=== PATIENT | female | born 1930 | race Caucasian/White ===

== ENCOUNTER 2016-12-26 12:37 | Emergency (ER) | payer MEDICARE, BC ==
--- NOTE | 2016-12-26 13:41 | RAD ---
Indication: Fall onto face. Comparison: January 04, 2015 CT. Technique: Noncontrast CT vertex of skull through foramen magnum. Report: Mild prominence of the cerebral sulci and cerebellar fissures reflecting atrophy. Decreased density in the periventricular and subcortical white matter while non-specific is most likely due to chronic microangiopathy. Negative for brantley matter white matter obscuration, intra or extra-axial hemorrhage, or mass effect. Unremarkable orbital contents. Negative for calvarial or skull base fracture. Paranasal sinuses and mastoid air spaces. Negative for scalp hematoma. IMPRESSION: 1. No evidence for traumatic brain injury. 2. Mild involutional change and stigmata of chronic small vessel ischemic disease. No acute intracranial process evident.
--- NOTE | 2016-12-26 13:48 | RAD ---
INDICATION: Mechanical fall onto face. COMPARISON: January 04, 2015 CT. TECHNIQUE: Multidetector CT images foramen magnum to lung apices without contrast. Multiplanar reformation. REPORT: Straightening relative to normal cervical lordosis which may be positional. Negative for facet subluxation at any level. Negative for vertebral body or posterior element fracture. Negative for paravertebral hematoma. Diffuse advanced degenerative spondylosis and facet joint osteoarthritis without significant change compared with the 2015 exam. Advanced degenerative arthropathy at the articulation between the dens and the anterior arch of C1 with suggestion of potential ankylosis. At C2-C3 facet joint osteoarthritis results in mild LEFT foraminal stenosis. At C3-C4 dorsal disc osteophyte complex results in mild acquired central canal stenosis and uncinate process spurring and facet joint osteoarthritis results in moderate RIGHT and severe LEFT foraminal stenosis. At C4-C5 dorsal disc osteophyte complex results in mild impression on the ventral margin of the thecal sac and uncinate process spurring results in mild bilateral foraminal stenosis. At C5-C6 dorsal disc osteophyte complex results in moderate acquired central canal stenosis and uncinate process spurring and facet joint osteoarthritis results in moderately severe RIGHT and mild LEFT foraminal stenosis. At C6-C7 prominent dorsal disc osteophyte complex results in moderate acquired central canal stenosis. IMPRESSION: No evidence for traumatic injury of the cervical spine.
--- NOTE | 2016-12-26 13:53 | RAD ---
INDICATION: Fall onto face. COMPARISON: Head CT and cervical spine CT of the same date. TECHNIQUE: Multidetector CT base of the skull through mandible without contrast. Multiplanar reformation. REPORT: Motion artifact degrades image quality. Artifact from dental amalgam. Soft tissue swelling over the RIGHT malar eminence, preseptal region of the RIGHT eye, and RIGHT forehead. No loculated soft tissue hematoma evident. Unremarkable post septal orbital contents. The orbital and maxillary sinus margins, zygomatic arches, lamina papyracea, base of the maxilla, pterygoid plates, and nasal bones are intact. The mandible is intact. Advanced degenerative arthropathy at the temporomandibular joints. Negative for TMJ dislocation. IMPRESSION: 1. Negative for maxillofacial fracture. 2. Soft tissue swelling over the RIGHT malar eminence, preseptal region of the RIGHT eye, and RIGHT forehead. No loculated soft tissue hematoma evident.
--- NOTE | 2016-12-26 13:56 | RAD ---
Indication: LEFT hand pain post fall. Comparison: No relevant prior exams available on the [facility] [place] PACS for comparison. Technique: AP and lateral views LEFT hand. Report: Bone density appears decreased throughout. There is ulnar plus variance and dorsal tilt of the distal radioarticular surface without a visualized acute or subacute fracture likely reflecting sequela of a healed distal radius fracture. No acute fracture evident. Negative for dislocation. Polyarticular severe osteoarthritis with advanced osteophytosis and joint space narrowing at the first metacarpal phalangeal and diffusely at the interphalangeal joints. Associated mild volar subluxation at the first metacarpal phalangeal joint. Diffuse soft tissue swelling. IMPRESSION: 1. Negative for fracture or dislocation. 2. Probable sequela of a healed distal radius fracture. 3. Polyarticular advanced osteoarthritis.
[2016-12-26 15:21] LABS: Urine Bilirubin Negative (Negative); Urine Glucose Negative (Negative); Urine Nitrite Negative (Negative)
[2016-12-26 15:30] VITALS: BP 132/63
--- NOTE | 2016-12-28 17:13 | ED ---
Cuong Domínguez Auryana, scribed for Laz Sanon MD on 12/26/16 at 1450 . Adult Trauma - HPI Summary HPI Summary: 86 year old female BIBA s/p fall. Patient reports that she just returned from walking her dog and had tripped. She has forehead pain and frontal teeth pain but denies neck pain, chest pain, or any shoulder pain. She currently is a resident at the [facility]. PMHx is significant for eye lid surgery (12/21/16) - History of Current Complaint Chief Complaint: EDHeadInjury Stated Complaint: FALL, Time Seen by Provider: 12/26/16 13:17 Hx Obtained From: Patient Hx Last Menstrual Period: N/A ?: No Mechanism of Injury: Fall Loss of Consciousness: no loss of consciousness Force: Medium Onset/Duration: Traumatic - [employer], Still Present Onset of Pain: Immediate Onset Severity: Mild Current Severity: Mild Pain Intensity: 4 Pain Scale Used: 0-10 Numeric Location: Head Associated Signs & Symptoms: Positive: Other: - forehead pain, and frontal teeth pain; NO NECK PAIN OR SHOULDER PAIN. Negative: Chest Pain, Fever, Loss of Consciousness - Allergy/Home Medications Allergies/Adverse Reactions: Allergies Allergy/AdvReac Type Severity Reaction Status Date / Time Doxycycline Allergy Mild Rash Verified 03/18/15 08:48 Diazepam [From Valium] Allergy Hallucinati Verified 03/18/15 08:48 ons PMH/Surg Hx/FS Hx/Imm Hx Endocrine/Hematology History: Denies: Hx Diabetes, Hx Thyroid Disease Cardiovascular History: Denies: Hx Hypertension Respiratory History: Denies: Hx Asthma, Hx Chronic Obstructive Pulmonary Disease (COPD) GI History: Denies: Hx Ulcer Musculoskeletal History: Denies: Hx Osteoporosis Neurological History: Denies: Other Neuro Impairments/Disorders - Surgical History Surgery Procedure, Year, and Place: Bilateral knee replacements. Hysterectomy. Cataract surgeries; both eyes. T&A Infectious Disease History: No Infectious Disease History: Reports: Hx Shingles - Over 20- years ago Denies: Hx Clostridium Difficile, Hx Hepatitis, Hx Human Immunodeficiency Virus (HIV), Hx of Known/Suspected MRSA, Hx Tuberculosis, Hx Known/Suspected VRE , Hx Known/Suspected VRSA, History Other Infectious Disease, Traveled Outside the [place] in Last 30 Days - Family History Known Family History: Positive: Cardiac Disease, Other - DEPRESSION - Social History Occupation: Retired Lives: Assisted Living Alcohol Use: Occasionally Hx Substance Use: No Substance Use Type: Reports: None Hx Tobacco Use: Yes Smoking Status (MU): Former Smoker Review of Systems Constitutional: Negative Negative: Fever Eyes: Negative Positive: Dental Pain - frontal Cardiovascular: Negative Negative: Chest Pain Respiratory: Negative Gastrointestinal: Negative Genitourinary: Negative Positive: Other - pain at the forehead Skin: Negative Neurological: Negative Psychological: Normal All Other Systems Reviewed And Are Negative: Yes Physical Exam - Summary Physical Exam Summary: VITAL SIGNS: Reviewed. GENERAL: Patient is a well-developed and nourished elderly female who is lying comfortable in the stretcher. Patient is not in any acute respiratory distress. HEAD AND FACE: No signs of trauma. No ecchymosis, hematomas or skull depressions. No sinus tenderness. Swelling of the nasal bridge, EYES: PERRLA, EOMI x 2, No injected conjunctiva, no nystagmus. Surgery on the bilateral eye lids - healing well , no discharge. EARS: Hearing grossly intact. Ear canals and tympanic membranes are within normal limits. MOUTH: Oropharynx within normal limits. NECK: Supple, trachea is midline, no adenopathy, no JVD, no carotid bruit, no c- spine tenderness, neck with full ROM. CHEST: Symmetric, no tenderness at palpation LUNGS: Clear to auscultation bilaterally. No wheezing or crackles. CVS: Regular rate and rhythm, S1 and S2 present, no murmurs or gallops appreciated. ABDOMEN: Soft, non-tender. No signs of distention. No rebound no guarding, and no masses palpated. Bowel sounds are normal. EXTREMITIES: FROM in all major joints, no edema, no cyanosis or clubbing. NEURO: Alert and oriented x 3. No acute neurological deficits. Speech is normal and follows commands. SKIN: Dry and warm. Triage Information Reviewed: Yes Vital Signs On Initial Exam: Initial Vitals Temp Pulse Resp BP Pulse Ox 98.2 F 83 18 169/63 93 12/26/16 12:41 12/26/16 12:41 12/26/16 12:41 12/26/16 12:41 12/26/16 12:41 Vital Signs Reviewed: Yes - Tavares Coma Scale Coma Scale Total: 15 Diagnostics - Vital Signs Vital Signs Temp Pulse Resp BP Pulse Ox 12/26/16 12:41 98.2 F 83 18 169/63 93 - Laboratory Lab Statement: Any lab studies that have been ordered have been reviewed, and results considered in the medical decision making process. - Radiology LEFT HAND Xray Interpretation: Positive (See Comments) - IMPRESSION: 1. Negative for fracture or dislocation. 2. Probable sequela of a healed distal radius fracture. 3. Polyarticular advanced osteoarthritis. Radiology Interpretation Completed By: Radiologist - CT BRAIN CT Interpretation: Positive (See Comments) - IMPRESSION: 1. No evidence for traumatic brain injury. 2. Mild involutional change and stigmata of chronic small vessel ischemic disease. No acute intracranial process evident. CT Interpretation Completed By: Radiologist cervical spine CT Interpretation: No Acute Changes - IMPRESSION: No evidence for traumatic injury of the cervical spine. CT Interpretation Completed By: Radiologist MAXILLOFACIAL CT Interpretation: Positive (See Comments) - IMPRESSION: 1. Negative for maxillofacial fracture. 2. Soft tissue swelling over the RIGHT malar eminence, preseptal region of the RIGHT eye, and RIGHT forehead. No loculated soft tissue hematoma evident. CT Interpretation Completed By: Radiologist Adult Trauma Course/Dx - Course Assessment/Plan: 86 year old female BIBA s/p fall. Patient reports that she just returned from walking her dog and had tripped. She has forehead pain and frontal teeth pain but denies neck pain, chest pain, or any shoulder pain. She currently is a resident at the [facility]. PMHx is significant for eye lid surgery (12/21/16). UA (-) UTI. CT MAXILLOFACIAL IMPRESSION 1. Negative for maxillofacial fracture. 2. Soft tissue swelling over the RIGHT malar eminence, pre-septal region of the RIGHT eye, and RIGHT forehead. No loculated soft tissue hematoma evident. Left Hand XR - IMPRESSION: 1. Negative for fracture or dislocation. 2. Probable sequela of a healed distal radius fracture. 3. Polyarticular advanced osteoarthritis. CT BRAIN - IMPRESSION: 1. No evidence for traumatic brain injury. 2. Mild involutional change and stigmata of chronic small vessel ischemic disease. No acute intracranial process evident. Cervical spine CT - IMPRESSION: No evidence for traumatic injury of the cervical spine. Patient is able to ambulate and has no other pain. Abrasions to face cleaned up and bacitracin applied. Patient thinks she has recent tetanus shot and declined tetanus shot here in ED. At this point, since patient is ambulatory and has no other complaint. We will discharge with follow up with PCP. Patient was given instructions for precautions. Daughter will stay with her tonight for observation at home. Patient is hemodynamically stable and A&O x3. - Diagnoses Provider Diagnoses: Fall, Facial contusion Discharge - Discharge Plan Condition: Stable Disposition: HOME Patient Education Materials: Fall Prevention (ED), Facial Contusion (ED) Referrals: Pop Sarabia MD [Primary Care Provider] - 3 Days The documentation as recorded by the Cuong lopez Auryana accurately reflects the service I personally performed and the decisions made by , Laz Sanon MD.
== END 2016-12-26 15:31 | disposition home or self-care (01) ==
LOC: ED 12:37
DX: S00.93XA Contusion of unspecified part of head, initial encounter (principal); R51 Headache; W19.XXXA Unspecified fall, initial encounter; Y93.9 Activity, unspecified; Y92.9 Unspecified place or not applicable; K08.89 Other specified disorders of teeth and supporting structures; Z87.891 Personal history of nicotine dependence
CPT/HCPCS: 70450; 70486; 72125; 81003; 99282

== ENCOUNTER 2018-03-13 22:52 | Emergency (ER) | payer MEDICARE, BC ==
--- OUTSIDE RECORDS SUMMARY | 2018-03-13 23:07 | XMS REPORT ---
:1930 External Reference #:[id number] Author Organization [facility] Address [address] [place] [address] [place] [address] Phone [phone] Care Team Providers Name Role Phone Pop Sarabia M.D. Primary Care Physician Unavailable Payers Type Date Identification Numbers Payment Provider Subscriber Medicare Primary Policy Number: [id number] Medicare Ebonie Mckeon PayID: [id number] [address] [place] [address] Medigap Part B Policy Number: [id number] [facility] Ebonie Mckeon Group Number: [id number] [address] [address] PayID: [id number] [place] [address] Problems Date Description Provider Status Onset: 04/06/2012 Rheumatoid arthritis Pa Lynn M.D. 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 Active without spinal cord injury Onset: 06/18/2015 Obstructive sleep apnea syndrome Starla Junior MD Active Onset: 06/15/2017 Malaise and fatigue Thomas Dubose M.D. Active Onset: 06/15/2017 Enthesopathy of knee Thomas Dubose M.D. Active Family History Date Family Member(s) Problem(s) Comments General Alzheimer's Disease General Heart Disease Father at age 71 Father Heart Disease Father Multiple Sclerosis (MS) Father Emphysema Mother at 87 Mother Alzheimer's Disease Social History Type Date Description Comments Marital Status Lives With Alone Occupation Retired Occupation Nurse Cigarette Use Former Cigarette Smoker Cigarette Use Former Cigarette Smoker 2 Packs Daily 18 years Cigarette Use Quit - Age 33 ETOH Use Occasionally consumes alcohol Smoking Patient is a former smoker Recreational Drug Use Denies Drug Use Daily Caffeine Consumes on average 1 cup of hot tea 1-2 Green tea per day Daily Caffeine consumes 1oz of chocolate per day Exercise Type/Frequency Exercises regularly Walking every day Allergies, Adverse Reactions, Alerts Date Description Reaction Status Severity Comments 01/05/2017 Erythromycin active diarhhea 09/16/2010 NKDA inactive Medications Medication Date Status Form Strength Qnty SIG Indications Ordering Provider Calcium-Carb 01/19/ Active Tablets 600-125mg- po bid Unknown 600 + D 2016 Unit Fish Oil 01/19/ Active Capsules 2000Units 1 by mouth Unknown 2015 every day Vitamin D 09/15/ Active Tablets 2000Unit 1 by mouth Unknown 2016 every day Danay 128 / Active Solution 5% 2 drops bid Unknown 0000 Multi-Vitamin / Active Tablets 1 po qd Unknown 0000 Fluticasone / Active Suspension 50mcg/Act prn Sarabia, Propionate 0000 Zoila Lord Meclizine HCL / Active Tablets 12.5mg 1-2 tab two Unknown 0000 times a day prn Preservision / Active Capsules 1 tab by Unknown Areds 0000 mouth once a day Prednisolone / Active Suspension 1% Instill 1 Unknown Acetate 0000 Drop Into The Right Eye Daily Ipratropium 11/01/ Hx Solution 0.03% 30ml 1 spray J30.9 Starla [place] 2016 - intranasal Sandi, 02/27/ twice a day 2018 Eye Drops 01/20/ Hx 1 times a Starla 2015 - day as Sandi 02/27/ instructed 2018 (prednisone , 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 Pa 2011 Endo, 02/27/ M.D. 2017 Methotrexate 09/15/ Hx Tablets 2.5mg 15tab 2 tabs each Pa 2011 Endo, 04/06/ M.D. 2011 Folic Acid 09/15/ Hx Tablets 1mg 90tab 1 po qd Pa 2012 - s Shane, 04/06/ M.D. 2011 Nyamyc / Hx Powder [id number] Cornell, 0000 - /GM Pop, 02/27/ M.D. 2017 Eye Drops / Hx 2 times per Unknown 0000 - day, both 02/27/ eyes, for 2018 bubbles on cornea Immunizations CPT Code Status Date Vaccine Lot # [id number] Given 06/18/2015 Influenza Virus 3Yrs & Over Vital Signs Date Vital Result Comment 02/28/2018 Height 62 inches 5'2" Weight 165.00 lb Heart Rate 80 /min BP Systolic Sitting 118 mmHg BP Diastolic Sitting 60 mmHg Respiratory Rate 14 /min O2 % BldC Oximetry 96 % BMI (Body Mass Index) 30.2 kg/m2 12/19/2017 Height 62 inches 5'2" Weight 168.25 lb Heart Rate 70 /min BP Systolic Sitting 168 mmHg Lue reg cuff BP Diastolic Sitting 76 mmHg Lue reg cuff Respiratory Rate 16 /min O2 % BldC Oximetry 97 % On Ra BMI (Body Mass Index) 30.8 kg/m2 09/17/2017 Height 62 inches 5'2" Weight 170.00 lb Heart Rate 80 /min BP Systolic Sitting 134 mmHg Lue regular cuff BP Diastolic Sitting 74 mmHg Lue regular cuff Respiratory Rate 16 /min O2 % BldC Oximetry 97 % BMI (Body Mass Index) 31.1 kg/m2 08/10/2017 Height 62 inches 5'2" Weight 173.25 lb with shoes Heart Rate 74 /min BP Systolic Sitting 148 mmHg Lue reg cuff BP Diastolic Sitting 86 mmHg Lue reg cuff Respiratory Rate 16 /min O2 % BldC Oximetry 95 % On Ra BMI (Body Mass Index) 31.7 kg/m2 06/15/2017 Height 62 inches 5'2" Weight 173.00 lb BP Systolic 126 mmHg BP Diastolic 74 mmHg Respiratory Rate 20 /min Body Temperature 98.1 F Pain Level 0 BMI (Body Mass Index) 31.6 kg/m2 01/05/2017 Height 62 inches 5'2" Weight 176.00 lb Heart Rate 98 /min BP Systolic Sitting 132 mmHg BP Diastolic Sitting 80 mmHg Respiratory Rate 16 /min Pain Level 5 Fell hit face-right eye O2 % BldC Oximetry 99 % BMI (Body Mass Index) 32.2 kg/m2 11/01/2016 Heart Rate 72 /min BP Systolic Sitting 122 mmHg BP Diastolic Sitting 70 mmHg Respiratory Rate 16 /min O2 % BldC Oximetry 97 % 08/02/2016 Height 62 inches 5'2" Weight 176.00 lb Heart Rate 68 /min BP Systolic 124 mmHg BP Diastolic 72 mmHg Respiratory Rate 14 /min O2 % BldC Oximetry 98 % BMI (Body Mass Index) 32.2 kg/m2 04/07/2016 Height 62 inches 5'2" Weight 176.00 lb reported Heart Rate 75 /min BP Systolic 126 mmHg BP Diastolic 86 mmHg Respiratory Rate 14 /min O2 % BldC Oximetry 98 % BMI (Body Mass Index) 32.2 kg/m2 01/21/2016 Height 62 inches 5'2" Weight 170.00 lb per pt Heart Rate 76 /min BP Systolic Sitting 130 mmHg BP Diastolic Sitting 74 mmHg Respiratory Rate 18 /min O2 % BldC Oximetry 96 % BMI (Body Mass Index) 31.1 kg/m2 09/17/2015 Height 62 inches 5'2" Weight 175.00 lb Heart Rate 78 /min BP Systolic 134 mmHg BP Diastolic 78 mmHg Respiratory Rate 16 /min O2 % BldC Oximetry 98 % BMI (Body Mass Index) 32.0 kg/m2 06/18/2015 Height 62 inches 5'2" Weight 175.00 lb Heart Rate 82 /min BP Systolic Sitting 136 mmHg BP Diastolic Sitting 74 mmHg Respiratory Rate 18 /min O2 % BldC Oximetry 97 % BMI (Body Mass Index) 32.0 kg/m2 03/27/2015 Height 61 inches 5'1" Weight 174.00 lb Heart Rate 78 /min BP Systolic Sitting 140 mmHg BP Diastolic Sitting 80 mmHg Pain Level 6 back BMI (Body Mass Index) 32.9 kg/m2 02/17/2015 Height 61 inches 5'1" Weight 177.00 lb Heart Rate 83 /min BP Systolic 128 mmHg BP Diastolic 70 mmHg Respiratory Rate 14 /min Body Temperature 98.6 F O2 % BldC Oximetry 94 % BMI (Body Mass Index) 33.4 kg/m2 Neck Circumference in inches 14 04/06/2012 Height 61 inches 5'1" Weight 178.00 lb Heart Rate 81 /min BP Systolic Sitting 126 mmHg BP Diastolic Sitting 64 mmHg BMI (Body Mass Index) 33.6 kg/m2 01/27/2012 Height 61 inches 5'1" Weight 180.00 lb Heart Rate 78 /min BP Systolic Sitting 118 mmHg BP Diastolic Sitting 70 mmHg BMI (Body Mass Index) 34.0 kg/m2 11/11/2011 Height 61 inches 5'1" Weight 183.00 lb Heart Rate 80 /min BP Systolic Sitting 122 mmHg BP Diastolic Sitting 64 mmHg BMI (Body Mass Index) 34.6 kg/m2 09/16/2011 Height 61 inches 5'1" Weight 182.00 lb Heart Rate 82 /min BP Systolic Sitting 123 mmHg BP Diastolic Sitting 66 mmHg BMI (Body Mass Index) 34.4 kg/m2 01/21/2011 Height 61 inches 5'1" Weight 180.00 lb Heart Rate 80 /min BP Systolic 120 mmHg BP Diastolic 78 mmHg BMI (Body Mass Index) 34.0 kg/m2 09/16/2010 Height 61 inches 5'1" Weight 183.00 lb Heart Rate 80 /min BP Systolic 122 mmHg BP Diastolic 80 mmHg BMI (Body Mass Index) 34.6 kg/m2 Results Test Date Test Result H/L Range Note CBC With Manual Diff 09/22/2012 White Blood Count 5.5 10^3/uL 4.8-10.8 Red Blood Count 4.60 10^6/uL 4.0-5.4 Hemoglobin 14.2 g/dL 12.0-16.0 Hematocrit 42 % 35-47 Mean Corpuscular Volume 91 fL 80-97 Mean Corpuscular Hemoglobin 31 pg 27-31 Mean Corpuscular HGB Conc 34 g/dL 31-36 Red Cell Distribution Width 14 % 10.5-15 Platelet Count 241 10^3/uL 150-450 Mean Platelet Volume 7 um3 Low 7.4-10.4 Abs Neutrophils 3.3 10^3/uL 1.5-7.7 Abs Lymphocytes 1.5 10^3/uL 1.0-4.8 Abs Monocytes 0.5 10^3/uL 0-0.8 Abs Eosinophils 0.2 10^3/uL 0-0.6 Abs Basophils 0 10^3/uL 0-0.2 Abs Nucleated RBC 0 10^3/uL Neutrophil % 53 % 38-83 Lymphocytes % 28 % 25-47 Monocytes % 13 % 0-13 Eosinophils % 4 % 0-6 Basophil % 1 % 0-2 Reactive Lymph % 1 % 0-6 RBC Morphology Normal Normal Laboratory test finding 09/22/2012 Erythrocyte Sed Rate 42 mm/Hr High 0- 40 C Reactive Protein 0.7 mg/dL High Less than 0.5 Rheumatoid Factor <15 IU/mL <15 1 Comp Metabolic Panel 09/22/2012 Sodium 138 mmol/L 133-145 Potassium 4.4 mmol/L 3.5-5.0 Chloride 106 mmol/L 101-111 Co2 Carbon Dioxide 29.0 mmol/L 22-32 Anion Gap 3.0 mmol/L 2-11 Glucose 96 mg/dL 70-100 Blood Urea Nitrogen 19 mg/dL 6-24 Creatinine 0.70 mg/dL 0.50-1.40 BUN/Creatinine Ratio 27.1 High 8-20 Calcium 9.3 mg/dL 8.1-9.9 Total Protein 6.0 g/dL Low 6.2-8.1 Albumin 3.3 g/dL 3.2-5.2 Globulin 2.7 g/dL 2-4 Albumin/Globulin Ratio 1.2 1-3 Total Bilirubin 0.6 mg/dL 0.4-1.5 Alkaline Phosphatase 68 U/L 30-110 Alt 20 U/L 14-54 Ast 23 U/L 12-42 Egfr Non- 79.7 >60 Egfr 102.5 >60 2 Laboratory test finding 09/22/2012 Cyclic Citrullinated Pept <15.6 U 3 IgG CBC With Manual Diff 07/31/2012 White Blood Count 7.4 10^3/uL 4.8-10.8 Red Blood Count 4.89 10^6/uL 4.0-5.4 Hemoglobin 14.2 g/dL 12.0-16.0 Hematocrit 44 % 35-47 Mean Corpuscular Volume 91 fL 80-97 Mean Corpuscular Hemoglobin 29 pg 27-31 Mean Corpuscular HGB Conc 32 g/dL 31-36 Red Cell Distribution Width 14 % 10.5-15 Platelet Count 262 10^3/uL 150-450 Mean Platelet Volume 8 um3 7.4-10.4 Abs Neutrophils 4.7 10^3/uL 1.5-7.7 Abs Lymphocytes 1.8 10^3/uL 1.0-4.8 Abs Monocytes 0.6 10^3/uL 0-0.8 Abs Eosinophils 0.3 10^3/uL 0-0.6 Abs Basophils 0.1 10^3/uL 0-0.2 Abs Nucleated RBC 0.01 10^3/uL Neutrophil % 56 % 38-83 Lymphocytes % 33 % 25-47 Monocytes % 6 % 0-13 Eosinophils % 5 % 0-6 RBC Morphology Normal Normal Laboratory test finding 07/31/2012 Erythrocyte Sed Rate 36 mm/Hr 0-40 C Reactive Protein 0.5 mg/dL Less than 0.5 Rheumatoid Factor <15 IU/mL <15 4 Comp Metabolic Panel 07/31/2012 Sodium 140 mmol/L 133-145 Potassium 4.7 mmol/L 3.5-5.0 Chloride 102 mmol/L 101-111 Co2 Carbon Dioxide 30.0 mmol/L 22-32 Anion Gap 8.0 mmol/L 2-11 Glucose 83 mg/dL 70-100 Blood Urea Nitrogen 26 mg/dL High 6-24 Creatinine 0.60 mg/dL 0.50-1.40 BUN/Creatinine Ratio 43.3 High 8-20 Calcium 9.6 mg/dL 8.1-9.9 Total Protein 7.1 g/dL 6.2-8.1 Albumin 3.8 g/dL 3.2-5.2 Globulin 3.3 g/dL 2-4 Albumin/Globulin Ratio 1.2 1-3 Total Bilirubin 0.6 mg/dL 0.4-1.5 Alkaline Phosphatase 72 U/L 30-110 Alt 24 U/L 14-54 Ast 27 U/L 12-42 Egfr Non- 95.2 >60 Egfr 122.5 >60 5 Laboratory test finding 03/23/2012 Erythrocyte Sed Rate 34 MM/HR 0-40 C Reactive Protein 0.5 mg/dL Less Than 0.5 CBC With Manual Diff 03/23/2012 White Blood Count 6.9 CUMM 4.8-10.8 Red Cell Count 4.65 CUMM 4.2-5.4 Hemoglobin 14.3 g/dL 12.0-16.0 Hematocrit 42 % 35-47 Mean Corpuscular Volume 91 um3 79-97 Mean Corpuscular Hemoglob 31 pg 27-31 Mean Corpuscular HGB Cone 34 g/dL 32-36 Redcell Distribution WDTH 14 % 10.5-15 Platelet Count 250 CUMM 150-450 Mean Platelet Volume 7.9 um3 7.4-10.4 Absolute Neutrophil Count 4.2 1.5-7.7 Polysegmented Neutrophil 54 % 38-83 Lymphocyte 38 % 25-47 Monocyte 5 % 0-13 Eosinophil 3 % 0-6 RBC Morphology NORMAL Basic Metabolic Panel 03/23/2012 Sodium 137 mmol/L 135-145 Potassium 4.9 mmol/L 3.5-5.0 Chloride 105 mmol/L 101-111 Co2 (Carbon Dioxide) 26.0 mmol/L 22-32 Anion Gap 6.0 mmol/L 2-11 6 Glucose 88 mg/dL 70-100 BUN 22 mg/dL 6-24 Creatinine 0.6 mg/dL 0.50-1.40 One Over Creatinine 1.66 BUN/Creatinine Ratio 36.7 High 8-20 Calcium 9.8 mg/dL 8.1-9.9 eGFR Non- 95.5 > 60 eGFR 122.8 > 60 7 Liver Function Panel 03/23/2012 Total Protein 6.3 GM/DL 6.2-8.1 Albumin 3.6 GM/DL 3.2-5.2 Globulin 2.7 GM/DL 2-4 Albumin/Globulin Ratio 1.3 1-3 Bilirubin Total 0.7 mg/dL 0.4-1.5 8 Bilirubin Direct 0.0 mg/dL Low 0.1-0.5 Indirect Bilirubin (SEE NOTE) mg/dL 0.3-1.0 9 Alkaline Phosphatase 67 U/L 30-110 Alt (SGPT) 18 U/L 14-54 Ast (Sgot) 25 U/L 12-42 CBC With Manual Diff 01/13/2012 White Blood Count 7.4 CUMM 4.8-10.8 Red Cell Count 4.83 CUMM 4.2-5.4 Hemoglobin 14.5 g/dL 12.0-16.0 Hematocrit 43 % 35-47 Mean Corpuscular Volume 90 um3 79-97 Mean Corpuscular Hemoglob 30 pg 27-31 Mean Corpuscular HGB Cone 34 g/dL 32-36 Redcell Distribution WDTH 15 % 10.5-15 Platelet Count 278 CUMM 150-450 Mean Platelet Volume 8.0 um3 7.4-10.4 Absolute Neutrophil Count 4.3 1.5-7.7 Polysegmented Neutrophil 60 % 38-83 Lymphocyte 30 % 25-47 Monocyte 7 % 0-13 Eosinophil 3 % 0-6 RBC Morphology NORMAL Laboratory test finding 01/13/2012 Erythrocyte Sed Rate 39 MM/HR 0-40 Laboratory test finding 01/13/2012 C Reactive Protein < 0.5 mg/dL Less Than 0.5 Liver Function Panel 01/13/2012 Total Protein 6.3 GM/DL 6.2-8.1 Albumin 3.7 GM/DL 3.2-5.2 Globulin 2.6 GM/DL 2-4 Albumin/Globulin Ratio 1.4 1-3 Bilirubin Total 0.6 mg/dL 0.4-1.5 10 Bilirubin Direct 0.1 mg/dL 0.1-0.5 Indirect Bilirubin 0.5 mg/dL 0.3-1.0 11 Alkaline Phosphatase 65 U/L 30-110 Alt (SGPT) 19 U/L 14-54 Ast (Sgot) 28 U/L 12-42 Basic Metabolic Panel 01/13/2012 Sodium 136 mmol/L 135-145 Potassium 5.4 mmol/L High 3.5-5.0 Chloride 104 mmol/L 101-111 Co2 (Carbon Dioxide) 28.0 mmol/L 22-32 Anion Gap 4.0 mmol/L 2-11 12 Glucose 90 mg/dL 70-100 BUN 23 mg/dL 6-24 Creatinine 0.7 mg/dL 0.50-1.40 One Over Creatinine 1.42 BUN/Creatinine Ratio 32.9 High 8-20 Calcium 9.8 mg/dL 8.1-9.9 eGFR Non- 79.9 > 60 eGFR 102.8 > 60 13 Laboratory test finding 12/09/2011 Erythrocyte Sed Rate 45 MM/HR High 0- 40 CBC With Manual Diff 12/09/2011 White Blood Count 6.1 CUMM 4.8-10.8 Red Cell Count 4.41 CUMM 4.2-5.4 Hemoglobin 13.4 g/dL 12.0-16.0 Hematocrit 39 % 35-47 Mean Corpuscular Volume 89 um3 79-97 Mean Corpuscular Hemoglob 31 pg 27-31 Mean Corpuscular HGB Cone 35 g/dL 32-36 Redcell Distribution WDTH 15 % 10.5-15 Platelet Count 286 CUMM 150-450 Mean Platelet Volume 7.5 um3 7.4-10.4 Absolute Neutrophil Count 3.5 1.5-7.7 Polysegmented Neutrophil 58 % 38-83 Lymphocyte 23 % Low 25-47 Monocyte 7 % 0-13 Eosinophil 10 % High 0-6 Basophil 1 % 0-2 Atypical Lymph 1 % 0-6 RBC Morphology NORMAL Laboratory test finding 12/09/2011 C Reactive Protein 0.7 mg/dL High Less Than 0.5 Liver Function Panel 12/09/2011 Total Protein 6.2 GM/DL 6.2-8.1 Albumin 3.4 GM/DL 3.2-5.2 Globulin 2.8 GM/DL 2-4 Albumin/Globulin Ratio 1.2 1-3 Bilirubin Total 0.6 mg/dL 0.4-1.5 14 Bilirubin Direct 0.0 mg/dL Low 0.1-0.5 Indirect Bilirubin (SEE NOTE) mg/dL 0.3-1.0 15 Alkaline Phosphatase 71 U/L 30-110 Alt (SGPT) 22 U/L 14-54 Ast (Sgot) 22 U/L 12-42 Basic Metabolic Panel 12/09/2011 Sodium 138 mmol/L 135-145 Potassium 4.7 mmol/L 3.5-5.0 Chloride 103 mmol/L 101-111 Co2 (Carbon Dioxide) 29.0 mmol/L 22-32 Anion Gap 6.0 mmol/L 2-11 16 Glucose 94 mg/dL 70-100 BUN 22 mg/dL 6-24 Creatinine 0.7 mg/dL 0.50-1.40 One Over Creatinine 1.42 BUN/Creatinine Ratio 31.4 High 8-20 Calcium 9.5 mg/dL 8.1-9.9 eGFR Non- 79.9 > 60 eGFR 102.8 > 60 17 1 Test Performed by: [address] [address] Painter Supervisor: Rush Payton III, M.D. 2 Because ethnic data is not always readily available, this report includes an eGFR for both -Americans and non- Americans. The National Kidney Disease Education Program (NKDEP) does not endorse the use of the MDRD equation for patients that are not between the ages of 18 and 70, are , have extremes of body size, muscle mass, or nutritional status, or are non- or non-. According to the National Kidney Foundation, irrespective of diagnosis, the stage of the disease is based on the level of kidney function: Stage Description GFR(mL/min/1.73 m(2)) 1 Kidney damage with normal or decreased GFR 90 2 Kidney damage with mild decrease in GFR 60-89 3 Moderate decrease in GFR 30-59 4 Severe decrease in GFR 15-29 5 Kidney failure <15 (or dialysis) 3 -- REFERENCE VALUE -- <20.0 (Negative) Test Performed by: [facility] [address] [place] [address] Painter Supervisor: Rush Payton III, M.D. 4 Test Performed by: [place] [address] [place] [address] Painter Supervisor: Rush Payton III, M.D. 5 Because ethnic data is not always readily available, this report includes an eGFR for both -Americans and non- Americans. The National Kidney Disease Education Program (NKDEP) does not endorse the use of the MDRD equation for patients that are not between the ages of 18 and 70, are , have extremes of body size, muscle mass, or nutritional status, or are non- or non-. According to the National Kidney Foundation, irrespective of diagnosis, the stage of the disease is based on the level of kidney function: Stage Description GFR(mL/min/1.73 m(2)) 1 Kidney damage with normal or decreased GFR 90 2 Kidney damage with mild decrease in GFR 60-89 3 Moderate decrease in GFR 30-59 4 Severe decrease in GFR 15-29 5 Kidney failure <15 (or dialysis) 6 Anion gap measurement may be of limited value in the presence of any alkalosis, especially in a combined acid base disorder. . 7 Because ethnic data is not always readily available, this report includes an eGFR for both -Americans and non- Americans. The National Kidney Disease Education Program (NKDEP) does not endorse the use of the MDRD equation for patients that are not between the ages of 18 and 70, are , have extremes of body size, muscle mass, or nutritional status, or are non- or non-. According to the National Kidney Foundation, irrespective of diagnosis, the stage of the disease is based on the level of kidney function: Stage Description GFR(mL/min/1.73 m(2)) 1 Kidney damage with normal or decreased GFR 90 2 Kidney damage with mild decrease in GFR 60-89 3 Moderate decrease in GFR 30-59 4 Severe decrease in GFR 15-29 5 Kidney failure <15 (or dialysis) 8 A metabolite of Naproxen, O-desmethylnaproxen, has been shown to interfere with the [place] method for measuring total bilirubin. Samples from patients who have taken Naproxen have shown spurious elevation in total bilirubin levels. 9 UNABLE TO CALCULATE IND.BILI D.BILI IS <0.1 Please note updated reference range, effective 02/05/10 10 A metabolite of Naproxen, O-desmethylnaproxen, has been shown to interfere with the [place] method for measuring total bilirubin. Samples from patients who have taken Naproxen have shown spurious elevation in total bilirubin levels. 11 Please note updated reference range, effective 02/05/10 12 Anion gap measurement may be of limited value in the presence of any alkalosis, especially in a combined acid base disorder. . 13 Because ethnic data is not always readily available, this report includes an eGFR for both -Americans and non- Americans. The National Kidney Disease Education Program (NKDEP) does not endorse the use of the MDRD equation for patients that are not between the ages of 18 and 70, are , have extremes of body size, muscle mass, or nutritional status, or are non- or non-. According to the National Kidney Foundation, irrespective of diagnosis, the stage of the disease is based on the level of kidney function: Stage Description GFR(mL/min/1.73 m(2)) 1 Kidney damage with normal or decreased GFR 90 2 Kidney damage with mild decrease in GFR 60-89 3 Moderate decrease in GFR 30-59 4 Severe decrease in GFR 15-29 5 Kidney failure <15 (or dialysis) 14 A metabolite of Naproxen, O-desmethylnaproxen, has been shown to interfere with the [place] method for measuring total bilirubin. Samples from patients who have taken Naproxen have shown spurious elevation in total bilirubin levels. 15 UNABLE TO CALCULATE IND.BILI D.BILI IS <0.1 Please note updated reference range, effective 02/05/10 16 Anion gap measurement may be of limited value in the presence of any alkalosis, especially in a combined acid base disorder. . 17 Because ethnic data is not always readily available, this report includes an eGFR for both -Americans and non- Americans. The National Kidney Disease Education Program (NKDEP) does not endorse the use of the MDRD equation for patients that are not between the ages of 18 and 70, are , have extremes of body size, muscle mass, or nutritional status, or are non- or non-. According to the National Kidney Foundation, irrespective of diagnosis, the stage of the disease is based on the level of kidney function: Stage Description GFR(mL/min/1.73 m(2)) 1 Kidney damage with normal or decreased GFR 90 2 Kidney damage with mild decrease in GFR 60-89 3 Moderate decrease in GFR 30-59 4 Severe decrease in GFR 15-29 5 Kidney failure <15 (or dialysis) Procedures Date CPT Code Description Status 04/16/2015 46436 Polysomnography Sleep Staging 4+ Parameters W/Cpap Completed 02/20/2015 59496 Polysomnography Sleep Staging 4+ Parameters W/Cpap Completed Encounters Type Date Location Provider CPT E/M Dx Office Visit 02/28/2018 [facility] [address] G47.33 1:45p [facility] Office Visit 12/19/2017 [facility] [address] G47.33 11:30a [facility] Office Visit 09/17/2017 [facility] [place] [address] G47.33 10:45a [facility] Office Visit 08/10/2017 [facility] [address] G47.33 11:45a [facility] Office Visit 06/15/2017 [facility] Dubose, 7[address] M62.81 10:00a C.M.A. M.DLauryn M70.51 M70.52 Office Visit 01/05/2017 10:00a [facility] [address] G47.33 [facility] Office Visit 11/01/2016 10:00a [facility] [address] G47.33 [facility] J30.9 Office Visit 08/02/2016 11:45a [facility] [address] G47.33 [facility] Office Visit 04/07/2016 11:45a [facility] [address] G47.33 [facility] Office Visit 01/21/2016 10:00a [facility] [address] G47.33 [facility] E66.8 Office Visit 09/17/2015 10:00a [place] [address] G47.33 [facility] Office Visit 06/18/2015 9:30a [facility] [address] G47.33 [facility] Office Visit 03/27/2015 11:30a Neurosurgery Services Jak Jefferson, 40[address] 805.4 Of [facility] M.D. Office Visit 02/17/2015 3:45p [place] [address] 780.50 [facility] 278.00 Office Visit 09/29/2012 2:40p Rheumatology [facility] Of [facility] Liz 99687 714.0 [facility] [employer] [facility] 715.16 Office Visit 04/06/2012 3:20p Rheumatology Services Pa Lynn M.D. 06274 714.0 Of [facility] [employer] [facility] 715.16 Office Visit 01/27/2012 2:40p Rheumatology Services Pa Lynn M.D. 88929 714.0 [facility] V58.69 Office Visit 11/11/2011 3:00p Rheumatology Services Pa Lynn M.D. 10947 714.0 Of [employer] [facility] V58.69 Office Visit 09/16/2011 10:00a [facility]umatology [facility] [place] 38367 715.94 Of [facility] [employer] [facility] M.DLauryn 714.0 V58.69 354.0 Office Visit 01/21/2011 9:00a Rheumatology Services [place] Lynn 50148 715.94 Of [employer] [facility] M.D. 714.0 Office Visit 09/16/2010 1:20p Rheumatology Services Pa Lynn M.D. 59323 714.0 [facility] 355.9 Plan of Care Future Appointment(s):06/21/2018 10:45 am - Starla Junior MD at [facility]02/28/2018 - Starla Junior MDG47.33 Obstructive sleep apnea (adult) (pediatric)New Orders:Sleep-HomecareFollow up:6 months
[2018-03-14] MEDS ORDERED: Tetracaine 0.5% OPTH.SOL 4 ML* 1 DROP BTL ONE
--- NOTE | 2018-03-14 00:12 | ED ---
Throat Pain/Nasal Congestion - HPI Summary HPI Summary: A 87 y/o female presents to ED c/o left eye pain/discomfort. As per triage, "Pt c/o left eye discomfort. States she feels as if she has something in her eye". According to the patient, her left eye hurts. She stated experiencing the pain/ discomfort this evening around 1999. She thinks there could be something in her left eye or possibly a scratch. She noted that if she keeps eye closed and does not move the eye, the pain is not as bad, but it is constant, especially when she blinks. She noted that she was at home when she the pain started. Recent eye doctor appointment. PMHx of cornea transplant, Fuchs dystrophy, macular degeneration, dry eye. Does have eye drops. Denies PMHx of glaucoma. - History of Current Complaint Chief Complaint: EDEyeProblem Time Seen by Provider: 03/13/18 23:54 Hx Obtained From: Patient Onset/Duration: Sudden Onset, Lasting Hours, Still Present Associated Signs And Symptoms: Positive: Negative - Allergies/Home Medications Allergies/Adverse Reactions: Allergies Allergy/AdvReac Type Severity Reaction Status Date / Time diazepam [From Valium] Allergy Hallucinati Verified 03/13/18 23:00 ons doxycycline Allergy Rash Verified 03/13/18 23:00 erythromycin base Allergy Diarrhea Verified 03/13/18 23:00 PMH/Surg Hx/FS Hx/Imm Hx Endocrine/Hematology History: Denies: Hx Diabetes, Hx Thyroid Disease Cardiovascular History: Denies: Hx Hypertension Respiratory History: Denies: Hx Asthma, Hx Chronic Obstructive Pulmonary Disease (COPD) GI History: Denies: Hx Ulcer Musculoskeletal History: Denies: Hx Osteoporosis Neurological History: Denies: Other Neuro Impairments/Disorders - Surgical History Surgery Procedure, Year, and Place: Bilateral knee replacements. Hysterectomy. Cataract surgeries; both eyes. T&A Infectious Disease History: No Infectious Disease History: Reports: Hx Shingles - Over 20- years ago Denies: Hx Clostridium Difficile, Hx Hepatitis, Hx Human Immunodeficiency Virus (HIV), Hx of Known/Suspected MRSA, Hx Tuberculosis, Hx Known/Suspected VRE , Hx Known/Suspected VRSA, History Other Infectious Disease, Traveled Outside the [place] in Last 30 Days - Family History Known Family History: Positive: Cardiac Disease, Other - DEPRESSION - Social History Alcohol Use: Occasionally Hx Substance Use: No Substance Use Type: Reports: None Hx Tobacco Use: Yes Smoking Status (MU): Former Smoker Review of Systems Negative: Fever Positive: Other - POSITIVE: Eye pain All Other Systems Reviewed And Are Negative: Yes Physical Exam - Summary Physical Exam Summary: VITAL SIGNS: Reviewed. GENERAL: Patient is a well-developed and nourished female who is lying comfortable in the stretcher. Patient is not in any acute respiratory distress. HEAD AND FACE: No signs of trauma. No ecchymosis, hematomas or skull depressions. No sinus tenderness. EYES: PERRLA, EOMI x 2, no nystagmus. Left eye showed injected conjunctiva, no foreign body seen, no corneal abrasions. Left eye was irrigated with 250 cc of normal saline with morgans lens. EARS: Hearing grossly intact. Ear canals and tympanic membranes are within normal limits. MOUTH: Oropharynx within normal limits. NECK: Supple, trachea is midline, no adenopathy, no JVD, no carotid bruit, no c- spine tenderness, neck with full ROM. CHEST: Symmetric, no tenderness at palpation LUNGS: Clear to auscultation bilaterally. No wheezing or crackles. CVS: Regular rate and rhythm, S1 and S2 present, no murmurs or gallops appreciated. ABDOMEN: Soft, non-tender. No signs of distention. No rebound no guarding, and no masses palpated. Bowel sounds are normal. EXTREMITIES: FROM in all major joints, no edema, no cyanosis or clubbing. NEURO: Alert and oriented x 3. No acute neurological deficits. Speech is normal and follows commands. SKIN: Dry and warm Triage Information Reviewed: Yes Vital Signs On Initial Exam: Initial Vitals Temp Pulse Resp BP Pulse Ox 97.6 F 86 18 168/71 95 03/13/18 22:57 03/13/18 22:57 03/13/18 22:57 03/13/18 22:57 03/13/18 22:57 Vital Signs Reviewed: Yes Diagnostics - Vital Signs Vital Signs Temp Pulse Resp BP Pulse Ox 03/13/18 22:57 97.6 F 86 18 168/71 95 - Laboratory Lab Statement: Any lab studies that have been ordered have been reviewed, and results considered in the medical decision making process. Re-Evaluation - Re-Evaluation First Eval Re-Evaluation Time: 00:17 Comment: Examined the patient. Second Eval Re-Evaluation Time: 00:52 Change: Improved Comment: Patient's symptoms improved. EENT Course/Dx - Course Course Of Treatment: A 87 y/o female presents to ED c/o left eye pain/ discomfort. No laboratory scans were done. No blood work was done. In the ED course, the patient's left eye was irrigated with 250 cc of normal saline with morgans lens. During reevaluation, patient revealed that her symptoms improved with irrigation with morgans lens. Patient will be discharged with a diagnosis left eye irritation. Patient is to follow up with [facility] tomorrow. Patient is agreeable with this plan. - Diagnoses Provider Diagnoses: Irritation of left eye Discharge - Sign-Out/Discharge Documenting (check all that apply): Patient Departure - DISCHARGE - Discharge Plan Condition: Stable Disposition: HOME Patient Education Materials: Blurred Vision (ED), Eye Pain (ED) Referrals: Pop Sarabia MD [Primary Care Provider] - 1 Day Additional Instructions: FOLLOW UP WITH OPHTHALMOLOGY TOMORROW. RETURN TO ED FOR ANY NEW OR WORSENING SYMPTOMS. - Attestation Statements Document Initiated by Scribe: Yes Documenting Scribe: Doc Laurent Provider For Whom Arpitaibe is Documenting (Include Credential): Michael Curiel Attestation: Doc Domínguez, salmaed for Braeden Soriano on 03/14/18 at 0118.
[2018-03-14] MEDS ORDERED: Ciprofloxacin 0.3% OPTH.SOL* 2.5 ML BTL ONE (01:17)
[2018-03-14 01:42] VITALS: BP 0/0
[2018-03-14] MEDS ORDERED: Ciprofloxacin 0.3% OPTH.SOL* 5 ML BTL LEFT EYE SCH (09:00)
== END 2018-03-14 01:25 | disposition home or self-care (01) ==
LOC: ED 22:52
DX: H57.12 Ocular pain, left eye (principal); Z87.891 Personal history of nicotine dependence; H57.8 Other specified disorders of eye and adnexa
CPT/HCPCS: 99282; A9270-GY